=== PATIENT | female | born 1995 | race Caucasian/White ===

== ENCOUNTER 2019-01-30 00:37 | Emergency (ER) | payer OTHER ==
[~2019-01-30] VITALS: Ht 152.4 cm; Wt 54.4 kg
[~2019-01-30 00:37] MED LIST: APAP500 PO; IBUPROFEN 800800 MG PO; NAPROSYN500 MG PO; PEPCID20 MG PO; PRENATA CHEWAB1 EACH PO; PRILOSEC 10MG C10 MG PO; TRAMADOL 50 MG50 MG PO
== END 2019-01-30 00:54 | disposition left against medical advice (07) ==
LOC: M.ERS 00:37
DX: Z53.21 Procedure and treatment not carried out due to patient leaving prior to being seen by health care provider (principal)